=== PATIENT | male | born 1965 | race Caucasian/White ===

== ENCOUNTER 2018-06-26 12:33 | Emergency (ER) | payer BC ==
[2018-06-26] MEDS ORDERED: HYDROmorphone 1 MG/ML Syringe IM ONE (12:43)
--- NOTE | 2018-06-26 12:50 | EDM.PDOC ---
ED HPI GENERAL MEDICAL PROBLEM - General Chief Complaint: Lower Extremity Injury/Pain Stated Complaint: DISLOCATED LEFT KNEE Time Seen by Provider: 06/26/18 12:46 Source of Information: Reports: Patient, Family, RN Notes Reviewed History Limitations: Reports: No Limitations - History of Present Illness INITIAL COMMENTS - FREE TEXT/NARRATIVE: 52-year-old gentleman presents to the emergency department day complaint of left knee pain, he states he was out working on his 4 correa lifted it twisted his knee somehow he felt a pop thought his knee was going in the wrong direction sudden onset of excruciating pain he had difficulty ambulating into the emergency department today Left Knee Pain Score (Numeric/FACES): 9 - Related Data Allergies Allergy/AdvReac Type Severity Reaction Status Date / Time No Known Allergies Allergy Verified 06/26/18 13:48 Past Medical History - Past Health History Medical/Surgical History: Denies Medical/Surgical History Social & Family History - Tobacco Use Smoking Status *Q: Unknown Ever Smoked Review of Systems - Review of Systems Review Of Systems: See Below Respiratory: Reports: No Symptoms Musculoskeletal: Reports: Joint Pain (Left knee pain) Skin: Reports: No Symptoms Neurological: Reports: No Symptoms ED EXAM, GENERAL - Physical Exam Exam: See Below Free Text/Narrative:: I do appreciate a mild amount of edema around the knee there is no erythema he will not tolerate any exam Exam Limited By: No Limitations General Appearance: Alert, Moderate Distress ED TRAUMA EXTREMITY PROCEDURES - Splinting Left Lower Extremity Splint Site: knee Pre-Procedure NV Status: Normal Post-Procedure NV Status: Normal Splint Material: Fiberglass Splint Design: Posterior Applied & Form Fitted By: Provider, Nurse Provider Post-Splint Application NV Check: NV Status Normal, Good Position Complications: No Course - Vital Signs Last Recorded V/S: Last Vital Signs Temp 95.9 F 06/26/18 12:41 Pulse 91 06/26/18 15:06 Resp 18 06/26/18 12:41 BP 140/90 06/26/18 15:06 Pulse Ox 95 06/26/18 15:06 - Orders/Labs/Meds Meds: Medications Discontinued Medications Generic Name Dose Route Start Last Admin Trade Name Freq PRN Reason Stop Dose Admin Fentanyl 50 mcg 06/26/18 14:18 06/26/18 14:25 Sublimaze IM 06/26/18 14:19 50 mcg ONETIME ONE Administration Fentanyl 50 mcg 06/26/18 16:11 Sublimaze IM 06/26/18 16:12 ONETIME ONE Hydromorphone HCl 1 mg 06/26/18 12:43 06/26/18 12:55 Dilaudid IM 06/26/18 12:44 1 mg ONETIME ONE Administration Ketorolac Tromethamine 60 mg 06/26/18 13:47 06/26/18 13:52 Toradol IM 06/26/18 13:48 60 mg ONETIME ONE Administration Lorazepam 1 mg 06/26/18 12:56 06/26/18 13:02 Ativan IM 06/26/18 12:57 1 mg ONETIME ONE Administration Departure - Departure Time of Disposition: 16:18 Disposition: Home, Self-Care 01 Condition: Fair Clinical Impression: Tibial plateau fracture, left Qualifiers: Encounter type: initial encounter Fracture type: closed Qualified Code(s): S82.142A - Displaced bicondylar fracture of left tibia, initial encounter for closed fracture - Discharge Information Referrals: PCP,None [Ordering Only Provider] - Forms: ED Department Discharge Additional Instructions: Continue to use crutches in splint until evaluated by orthopedic surgery, use hydrocodone as needed for pain plan for clinic follow-up with Dr. Espino at the hospital register where he registered for the emergency department on Thursday - Assessment/Plan Plan: Assessment Acuity = acute Site and laterality = left tibial plateau fracture 2 cm depression Etiology = secondary to trauma Manifestations = pain Location of injury = Home Lab values = CT scan describes fracture above Plan Called discussed case Dr. Espino he kindly agreed to see the patient in his clinic on Thursday, he is placed in a posterior splint hydrocodone 5/ 325 one tab by mouth 3 times a day when necessary total #10 provided for pain control This note was dictated using [employer] voice recognition software please call with any questions on syntax or grammar.
[2018-06-26] MEDS ORDERED: LORazepam 2 MG/ML SDV IM ONE (12:56)
[2018-06-26] MEDS ORDERED: Ketorolac 60 MG/2 ML SDV IM ONE (13:47)
--- NOTE | 2018-06-26 14:14 | CRLCR ---
INDICATION: Left knee pain. TECHNIQUE: Three view. FINDINGS: Non traditional views of the left knee have been performed. Lucency and suspected depressed fracture deformity of the tibia plateau laterally is noted. The patella and distal femoral condyles appear intact. IMPRESSION: Suspected fracture deformity involving the lateral tibial plateau with probable depression of the left knee. Recommend a CT scan for further assessment. Dictated by Richard Robledo MD @ 06/26/2018 2:12:55 PM Dictated by: Richard Robledo MD @ 06/26/2018 14:13:02 (Electronically Signed)
[2018-06-26] MEDS ORDERED: fentaNYL 100 MCG/2 ML SDV IM ONE ×2 (14:18→16:11)
--- NOTE | 2018-06-26 15:47 | CRLCT ---
INDICATION: Pain after injury. Assess fracture. COMPARISON: Plain film same date. TECHNIQUE: Multi detector imaging centered on the left knee with axial coronal and sagittal reformats. FINDINGS: Moderately large lipohemarthrosis in the knee. Intact unremarkable appearance of femur and patella. Prominently comminuted fracture through the lateral half to 3rd of the tibial plateau. Dominant fragment is approximately 18 mm depressed with counter clockwise rotation in the sagittal plane with the anterior margin of the articular cortex more significantly displaced than the posterior. This fragment at the articular surface measures a greatest width of 2.2 cm. Fracture extends along the lateral base of the lateral tibial spine. Fracture does not extend into the proximal tibia fibular joint. Greatest width of the fracture in the coronal plane is 3.2 cm. IMPRESSION: Comminuted impression fracture of the lateral tibial plateau with up to 2 cm depression and rotation of the dominant fragment. Please note that all CT scans at this facility use dose modulation, iterative reconstruction, and/or weight-based dosing when appropriate to reduce radiation dose to as low as reasonably achievable. Dictated by Umberto Camejo MD @ Jun 26 2018 3:42PM Signed by Dr. Umberto Camejo @ Jun 26 2018 3:46PM
== END 2018-06-26 17:00 | disposition home or self-care (01) ==
LOC: JP.ED 12:33
DX: S82.142A Displaced bicondylar fracture of left tibia, initial encounter for closed fracture (principal); X50.1XXA Overexertion from prolonged static or awkward postures, initial encounter
CPT/HCPCS: 29505; 73560; 73700; 96372; 99284; J1170; J1885; J2060; J3010

== ENCOUNTER 2018-06-30 06:19 | Observation (INO) | payer BC ==
[2018-06-30] MEDS ORDERED: Bupivacaine 0.25%/EPINEPHrine 1:200,000 30 ML SDV ONE (06:53)
[2018-06-30] MEDS: Nozin Nasal Sanitizer NASBOTH SCH ×2 (06:54→20:27)
[2018-06-30] MEDS: Lactated Ringers 1,000 ML IV SCH ×3 (07:13→20:28)
[2018-06-30] MEDS ORDERED: fentaNYL 250 MCG/5 ML SDV ONE ×2 (07:21→08:03)
[2018-06-30] MEDS ORDERED: Glycopyrrolate 0.2 MG/ML 5 ML MDV ONE (07:23)
[2018-06-30] MEDS ORDERED: Rocuronium 50 MG/5 ML Vial ONE (07:23)
[2018-06-30] MEDS ORDERED: Ondansetron 4 MG/2 ML SDV ONE (07:23)
[2018-06-30] MEDS ORDERED: Dexamethasone 4 MG/ML SDV ONE (07:23)
[2018-06-30] MEDS ORDERED: Succinylcholine 200 MG/10 ML MDV ONE (07:23)
[2018-06-30] MEDS ORDERED: Neostigmine Methylsulfate 1 MG/ML 5 ML Syringe ONE (07:23)
[2018-06-30] MEDS ORDERED: Propofol 200 MG/20 ML SDV ONE (07:23)
[2018-06-30] MEDS ORDERED: ceFAZolin 1 GM in Premix Bag 1 BAG IV ONE (07:45)
[2018-06-30] MEDS ORDERED: Lactated Ringers 1,000 ML ONE (08:25)
[2018-06-30] MEDS ORDERED: fentaNYL 100 MCG/2 ML SDV ONE ×2 (09:15→09:34)
[2018-06-30] MEDS ORDERED: Acetaminophen 325 MG Tab PO PRN (09:57)
[2018-06-30] MEDS ORDERED: Morphine 2 MG/ML Syringe IVPUSH ONE (10:05)
[2018-06-30] MEDS ORDERED: Morphine 2 MG/ML Syringe IVPUSH PRN (10:09)
[2018-06-30] MEDS ORDERED: hydrOXYzine HCl 100 MG/2 ML SDV IM ONE (10:17)
[2018-06-30] MEDS ORDERED: Cyclobenzaprine 10 MG Tab PO PRN (11:22)
[2018-06-30] MEDS ORDERED: Diazepam 5 MG Tab PO ONE (11:23)
--- NOTE | 2018-06-30 12:57 | PCM.OPNOTE ---
- General Post-Op/Procedure Note Date of Surgery/Procedure: 06/30/18 Operative Procedure(s): Open Reduction and Internal Fixation lateral tibial plateau, left knee Findings: Comminuted, intra-articular fracture of lateral plateau with articular fragment rotated 90 degrees Pre Op Diagnosis: Comminuted, displaced lateral tibial plateau Post-Op Diagnosis: Same Anesthesia Technique: General ET Tube Primary Surgeon: Cheikh Espino Complications: None Condition: Good Free Text/Narrative:: Intake & Output 06/29/18 06/30/18 06/30/18 22:59 06:59 14:59 Intake Total 200 Output Total 400 Balance -200 Indications: Mr. Perez sustained an injury to his left knee over the weekend attempting to twist while lifting a heavy object. This resulted in a significant fracture of the lateral tibial plateau which is comminuted, intra- articular and displaced. I have gone over the CT scan with him which shows a large articular fragment which is rotated 90 out of position. This requires open reduction and internal fixation.Risks, benefits and potential complications were discussed. He understands and agrees to proceed. Procedure: After administration of IV antibiotic and adequate anesthesia the left leg was prepped with a tourniquet about the upper thigh. He was then sterilely prepped and draped. Left leg was exsanguinated and tourniquet inflated to 300 mg of mercury pressure.Anterior longitudinal incision was made midline from several centimeters distal to the tibial tubercle to about mid point of the patella. Incision in the fascia of the anterior compartment was then made and the anterior compartment musculature was elevated off of the lateral tibial and tibial metaphysis. Comminution of the metaphysis was noted. An incision was then made into the joint capsule and the hemarthrosis was evacuated.Lateral meniscus was identified and protected throughout. Some mild scuffing of the lateral femoral condyle was noted. One of the fracture lines of the metaphysis was developed and used to gain access to the depressed fragment. A large articular fragment was rotated 90. Using a combination of a [place] elevator and osteotome this was freed from its impacted position and elevated back up level with the joint line. Sabianism of the joint line was confirmed by direct visualization, palpation with a [place] and visualization with fluoroscopy. Crushed cancellus allograft was used to fill the void from the depressed fragment. The metaphyseal fragments were then reduced back around the large articular fragment. Final position was confirmed using fluoroscopy. A K wire was then driven across the fracture line securing the articular fragment in place. A [employer] pre-contoured lateral plateau plate was selected.Additional contour was placed on it for better fit against the patient's tibia. Bone clamps were used to reduce the metaphyseal fragments into position and a cortical screw was placed first through the sliding position on the plate providing compression, good purchase was obtained with this. Additional fixation was then obtained distally with cortical screws. Attention was then turned to the proximal portion and 2 locking screws were placed across the condyles. An additional screw was placed more posteriorly through a small stab incision in the skin laterally. An additional locking screw was placed up at 45 angle. One of the comminuted cortical pieces was also secured with a lag screw. Final position of all screws and the hardware was confirmed using fluoroscopy. Good sikh of joint line was obtained. The knee was irrigated. Capsule was then closed in a combination of intermittent and running fashion. The fascia of the anterior compartment was closed in a running fashion. Skin was closed with 2-0 Vicryl and a running 3-0 Monocryl. Steri-Strips were applied. Sterile dressings was then placed. Leg was placed into a hinged knee brace locked in extension.Patient tolerated procedure very well and there were no complications and he was taken from the operating room in stable condition.
[2018-06-30] MEDS: Acetaminophen/oxyCODONE 325-5 MG Tab PO PRN ×2 (15:39→21:34)
[2018-06-30] MEDS: Acetaminophen/HYDROcodone 325-5 MG Tab PO PRN ×2 (17:12→20:27)
[2018-07-01] MEDS: Acetaminophen/HYDROcodone 325-5 MG Tab PO PRN ×5 (04:04→13:14)
[2018-07-01] MEDS: Nozin Nasal Sanitizer NASBOTH SCH (08:00)
[2018-07-01] MEDS ORDERED: Escitalopram 20 MG Tab PO SCH (09:00)
--- NOTE | 2018-07-01 17:00 | PCM.SURGPN ---
- General Info Date of Service: 07/01/18 POD#: 1 Post-Op Diagnosis: S/P ORIF left lateral tibial plateau Functional Status: Reports: Pain Controlled - Review of Systems General: Reports: No Symptoms HEENT: Reports: No Symptoms Pulmonary: Reports: No Symptoms Skin: Reports: No Symptoms Neurological: Reports: No Symptoms Psychiatric: Reports: No Symptoms Systems Review Comment:: Some difficulty with pain and muscle spasm initially, now under control - Patient Data Vitals - Most Recent: Last Vital Signs Temp 36.4 C 07/01/18 07:08 Pulse 63 07/01/18 07:08 Resp 18 07/01/18 07:08 BP 132/90 07/01/18 07:08 Pulse Ox 97 07/01/18 07:08 Weight - Most Recent: 93.123 kg I&O - Last 24 Hours: Intake & Output 07/01/18 07/01/18 07/01/18 06:59 14:59 22:59 Intake Total 1771 Output Total 1625 Balance 146 Med Orders - Current: Current Medications Discontinued Medications Acetaminophen (Tylenol) 650 mg PO Q4H PRN PRN Reason: Pain/Fever Hydrocodone Bitart/Acetaminophen ([place] 325-5 Mg) 1 tab PO Q3H PRN PRN Reason: Pain (moderate 4-6) Last Admin: 07/01/18 13:14 Dose: 1 tab Bandage/Support Products ( Nasal Tobacco Packer) 1 applic NASBOTH BID [facility] Last Admin: 07/01/18 08:00 Dose: 1 dose Bupivacaine HCl/Epinephrine Bitart ([place] 0.25%/Epinephrine 1:200,000) Confirm Administered Dose 30 ml .ROUTE .STK-MED ONE Stop: 06/30/18 06:54 Cyclobenzaprine HCl (Flexeril) 10 mg PO Q8H PRN PRN Reason: Muscle Spasm Last Admin: 06/30/18 12:17 Dose: 10 mg Dexamethasone (Dexamethasone) Confirm Administered Dose 4 mg .ROUTE .STK-MED ONE Stop: 06/30/18 07:24 Diazepam (Valium.) 5 mg PO ONETIME ONE Stop: 06/30/18 11:24 Last Admin: 06/30/18 12:36 Dose: 5 mg Escitalopram Oxalate (Lexapro) 40 mg PO DAILY [facility] Last Admin: 07/01/18 10:04 Dose: Not Given Fentanyl (Sublimaze) Confirm Administered Dose 250 mcg .ROUTE .STK-MED ONE Stop: 06/30/18 07:22 Fentanyl (Sublimaze) Confirm Administered Dose 250 mcg .ROUTE .STK-MED ONE Stop: 06/30/18 08:04 Fentanyl (Sublimaze) Confirm Administered Dose 100 mcg .ROUTE .STK-MED ONE Stop: 06/30/18 09:16 Fentanyl (Sublimaze) Confirm Administered Dose 100 mcg .ROUTE .STK-MED ONE Stop: 06/30/18 09:35 Glycopyrrolate (Robinul) Confirm Administered Dose 1 mg .ROUTE .STK-MED ONE Stop: 06/30/18 07:24 Hydroxyzine HCl (Vistaril) 75 mg IM ONETIME ONE Stop: 06/30/18 10:18 Last Admin: 06/30/18 10:22 Dose: 75 mg Lactated Ringer's (Ringers, Lactated) 1,000 mls @ 75 mls/hr IV ASDIRECTED [facility] Last Admin: 06/30/18 20:28 Dose: 75 mls/hr Cefazolin Sodium/Dextrose 1 gm (/ Premix) 50 mls @ 100 mls/hr IV ONETIME ONE Stop: 06/30/18 08:14 Last Admin: 06/30/18 15:07 Dose: Not Given Lactated Ringer's (Ringers, Lactated) Confirm Administered Dose 1,000 mls @ as directed .ROUTE .STK-MED ONE Stop: 06/30/18 08:26 Morphine Sulfate (Morphine) 2 mg IVPUSH ONETIME ONE Stop: 06/30/18 10:06 Last Admin: 06/30/18 10:10 Dose: 2 mg Morphine Sulfate (Morphine) 2 mg IVPUSH Q1H PRN PRN Reason: Pain (severe 7-10) Last Admin: 06/30/18 12:36 Dose: 2 mg Neostigmine Methylsulfate (Neostigmine) Confirm Administered Dose 5 mg .ROUTE .STK-MED ONE Stop: 06/30/18 07:24 Ondansetron HCl (Zofran) Confirm Administered Dose 4 mg .ROUTE .STK-MED ONE Stop: 06/30/18 07:24 Oxycodone/Acetaminophen (Percocet 325-5 Mg) 1 tab PO Q6H PRN PRN Reason: Pain (severe 7-10) Last Admin: 06/30/18 21:34 Dose: 1 tab Propofol (Diprivan 20 Ml) Confirm Administered Dose 200 mg .ROUTE .STK-MED ONE Stop: 06/30/18 07:24 Rocuronium [place] (Zemuron) Confirm Administered Dose 50 mg .ROUTE .STK-MED ONE Stop: 06/30/18 07:24 Succinylcholine Chloride (Quelicin) Confirm Administered Dose 200 mg .ROUTE .STK -MED ONE Stop: 06/30/18 07:24 - Exam General: Alert, Oriented Skin: Warm, Dry, Intact Neurological: No New Focal Deficit Psy/Mental Status: Alert, Normal Affect, Normal Mood Physical Findings Comment:: Moderate amount of bloody drainage on dressings, swelling not bad, no signs of compartment syndrome, can flex/extend toes and ankle. - Problem List & Annotations (1) Tibial plateau fracture, left SNOMED Code(s): 755380218 Code(s): S82.142A - DISPLACED BICONDYLAR FRACTURE OF LEFT TIBIA, INIT Status: Acute Qualifiers: Encounter type: initial encounter Fracture type: closed Qualified Code(s) : S82.142A - Displaced bicondylar fracture of left tibia, initial encounter for closed fracture - Problem List Review Problem List Initiated/Reviewed/Updated: Yes - My Orders Last 24 Hours: Active Orders 24 hr Category Date Time Status Ready for Discharge [RC] PER UNIT ROUTINE Care 07/01/18 12:23 Active - Assessment Assessment (Free Text/Narrative):: His surgical dressing is taken down. There is a moderate amount of drainage. Still a small amount of old blood draining from one of the lateral puncture wounds. Overall the swelling is moderate. - Plan Plan (Free Text/Narrative):: New dressing is applied and the brace replaced. He is doing well enough with pain control and crutches that he can be discharged safely today. Instructed him on wound care. He should stay essentially nonweightbearing. He can rest his foot down for balance but apply no pressure. Set up for outpatient physical therapy. Plan to follow up in a week to assess healing swelling etc. If he has any difficulty with fevers chills persistent drainage he should return.
== END 2018-07-01 13:30 | disposition home or self-care (01) ==
LOC: JP.SDS 06:19 → JP.2SS 09:57
PROVIDERS: ADMIT Specialist; ATTEND Specialist
DX: S82.142A Displaced bicondylar fracture of left tibia, initial encounter for closed fracture (principal); F17.210 Nicotine dependence, cigarettes, uncomplicated; X50.1XXA Overexertion from prolonged static or awkward postures, initial encounter; X50.0XXA Overexertion from strenuous movement or load, initial encounter
CPT/HCPCS: 27536; 36415; 80053; 85027; 97161; 97530; A9270; C1713; J0330; J1100; J2270; J2405; J2704; J2710; J3010; J3410; J3490; J7120

== ENCOUNTER 2021-02-25 06:28 | Day surgery (SDC) | payer BC ==
[2021-02-25] MEDS ORDERED: Sodium Chloride 0.9% 1,000 ML IV SCH (07:00)
[2021-02-25] MEDS ORDERED: fentaNYL 100 MCG/2 ML SDV ONE (07:26)
[2021-02-25] MEDS ORDERED: Propofol 200 MG/20 ML SDV ONE (07:26)
[2021-02-25] MEDS ORDERED: Midazolam 1 MG/ML 2 ML SDV ONE (07:27)
--- NOTE | 2021-02-25 10:13 | OR ---
DATE OF PROCEDURE: 02/25/2021 SURGEON: Osorio Ortiz MD PROCEDURE: Colonoscopy. FINDINGS: 1. Transverse colon polyp, approximately 5 mm, completely removed using cold biopsy forceps. 2. Sigmoid colon polyp #1, approximately 5 mm, completely removed using hot snare wire device. 3. Sigmoid colon polyp #2, approximately 8 mm, completely removed using hot snare wire device. 4. Sigmoid colon polyp #3, approximately 8 mm, completely removed using hot snare wire device. COMPLICATIONS: None. CHANNEL CEMENTER: None. ANESTHESIA: MAC. PREOPERATIVE DIAGNOSIS: Screening colonoscopy. POSTOPERATIVE DIAGNOSIS: Screening colonoscopy. RISKS: Risks, benefits, alternatives, and limitations including, but not limited to infection, bleeding, perforation, false positives, false negatives were explained to the patient who wished to proceed. PROCEDURE IN DETAIL: The patient was placed in left lateral decubitus position. Digital rectal exam was performed without abnormality. Scope was introduced and advanced atraumatically to the ileocecal valve. A photo was taken of this. Scope was brought back to the ascending, transverse, descending colon, and retroflexed. No evidence of old or new blood. No masses. No diverticulosis. The aforementioned polyps were identified and completely removed. No abnormal bleeding was noted after this. No abnormalities on retroflexion. Greater than 8 minutes was spent removing the scope. The prep was acceptable, approximately 90% of the luminal surface could be seen. The patient tolerated the procedure well. Osorio Ortiz MD /[id number]
== END 2021-02-25 08:50 | disposition home or self-care (01) ==
LOC: JP.SDS 06:28
PROVIDERS: ATTEND Surgery
DX: Z12.11 Encounter for screening for malignant neoplasm of colon (principal); D12.3 Benign neoplasm of transverse colon; D12.5 Benign neoplasm of sigmoid colon; F17.200 Nicotine dependence, unspecified, uncomplicated
CPT/HCPCS: 45380; 45385; J2250; J2704; J3010; J7030

== ENCOUNTER 2022-03-28 06:43 | Day surgery (SDC) | payer BC ==
[2022-03-28] MEDS ORDERED: fentaNYL 50 MCG/ML SDV ONE (07:15)
[2022-03-28] MEDS ORDERED: Propofol 200 MG/20 ML SDV ONE (07:15)
[2022-03-28] MEDS ORDERED: Midazolam 1 MG/ML 2 ML SDV ONE (07:15)
[2022-03-28] MEDS ORDERED: Sodium Chloride 0.9% 1,000 ML IV SCH (07:30)
== END 2022-03-28 10:00 | disposition home or self-care (01) ==
LOC: JP.SDS 06:43
PROVIDERS: ATTEND Surgery
PROC: 0DJD8ZZ Inspection of Lower Intestinal Tract, Via Natural or Artificial Opening Endoscopic (ICD-10-PCS; principal; 2022-03-28)
DX: Z12.11 Encounter for screening for malignant neoplasm of colon (principal); Z86.010 Personal history of colon polyps
CPT/HCPCS: 45378; J2250; J2704; J3010; J7030

== ENCOUNTER 2024-11-12 19:47 | Emergency (ER) | payer BC, OTHER ==
[2024-11-12] MEDS ORDERED: Sodium Chloride 0.9% 10 ML Syringe FLUSH PRN (19:55)
[2024-11-12 20:07] LABS: BASOPHILS ABSOLUTE AUTO 0.06 K/uL (0.00-0.10); BASOPHILS PERCENT AUTO 0.5 % (0.1-1.3); EOSINOPHILS ABSOLUTE AUTO 0.03 K/uL (0.00-0.40); EOSINOPHILS PERCENT AUTO 0.2 % (0.0-5.4); IMMATURE GRAN ABSOLUTE AUTO 0.05 K/uL (0.00-0.23); IMMATURE GRAN PERCENT AUTO 0.4 % (0.0-0.7); LYMPHOCYTES ABSOLUTE AUTO 1.67 K/uL (0.8-3.3); LYMPHOCYTES PERCENT AUTO 12.8 % (11.4-47.7); MONOCYTES ABSOLUTE AUTO 0.65 K/uL (0.20-0.90); MONOCYTES PERCENT AUTO 5.0 % (3.3-12.6); NEUTROPHILS ABSOLUTE AUTO 10.61 K/uL (1.0-7.6); NEUTROPHILS PERCENT AUTO 81.1 % (40.0-78.1); PLATELET COUNT,PLT 262 K/uL (130-375); RED BLOOD CELL COUNT 5.41 M/uL (4.14-5.76); WHITE BLOOD CELL COUNT,WBC 13.1 K/uL (3.2-11.0)
[2024-11-12 20:29] LABS: INR 1.0; PTT,PARTIAL THROMBOPLSTIN TIME 22.5 sec (21.8-27.3)
[2024-11-12 21:06] LABS: LACTIC ACID 2.0 mmol/L (0.4-2.0)
[2024-11-12 21:21] LABS: A/G RATIO 1.3 (1.2-2.2); ALANINE AMINOTRANSFERASE,ALT 42 U/L (12-78); ASPARTATE AMNIOTRANSFERASE,AST 25 U/L (15-37); BILIRUBIN TOTAL 0.4 mg/dL (0.2-1.0); BLOOD UREA NITROGEN,BUN 15 mg/dL (7-18); CARBON DIOXIDE,CO2 24 mmol/L (21-32); CHLORIDE,CL 102 mmol/L (100-108); CREATININE 1.1 mg/dL (0.8-1.3); ESTIMATED GFR 77 mL/min (>60); GLUCOSE RANDOM 127 mg/dL (74-106); POTASSIUM,K 3.8 mmol/L (3.6-5.2); PROTEIN TOTAL,TP 7.5 g/dL (6.4-8.2); SODIUM,NA 140 mmol/L (140-148); TROPONIN I HIGH SENSITIVITY 7.3 pg/mL (<=60.3)
[2024-11-12] MEDS: Iopamidol 755 Mg/ML 100 ML Bottle IV SCH (21:24)
== END 2024-11-12 23:45 ==
LOC: JP.ED 19:47
DX: I63.9 Cerebral infarction, unspecified (principal); Z79.899 Other long term (current) drug therapy
CPT/HCPCS: 36415; 37195; 70450; 70496; 70498; 80053; 82947; 83605; 84484; 85025; 85610; 85730; 93005; 93010; 99285; 99291; 99292; A9270; J3101; Q9967